=== PATIENT | female | born 1930 | race Caucasian/White ===

== ENCOUNTER 2016-10-10 11:05 | Emergency (ER) | payer MEDICARE, BC ==
[2016-10-10 12:43] VITALS: BP 160/76
[2016-10-10] MEDS ORDERED: Lidocaine 2% PF * 5 ML VIAL ONE (12:46)
--- NOTE | 2016-10-10 12:51 | UC ---
Laceration HPI - HPI Summary HPI Summary: WAS GOING INTO HER CLOSET ABOUT 2 HRS AGO WHEN THE FOLDING DOOR FELL OFF THE TRACK AND STRUCK HER HEAD. NO LOC. PT PRESENTS WITH A SCALP LACERATION. - History Of Current Complaint Chief Complaint: UCLaceration Stated Complaint: HEAD LACERATION Time Seen by Provider: 10/10/16 12:39 Hx Obtained From: Patient Laceration Location: Head Mechanism Of Injury: Blunt Trauma Onset/Duration: Sudden Onset, Lasting Hours Severity: Moderate Pain Intensity: 2 Pain Scale Used: 0-10 Numeric Aggravating Factors: Nothing - Allergies/Home Medications Allergies/Adverse Reactions: Allergies Allergy/AdvReac Type Severity Reaction Status Date / Time No Known Allergies Allergy Verified 10/10/16 12:32 PMH/Surg Hx/FS Hx/Imm Hx Endocrine History Of: Reports: Diabetes Cardiovascular History Of: Reports: Hypertension Neurological History Of: Reports: Dementia Psychological History Of: Reports: Anxiety, Depression - Surgical History Surgical History: Yes Surgery Procedure, Year, and Place: GASTRECTOMY - Family History Known Family History: Negative: Hypertension - Social History Alcohol Use: Occasionally Substance Use Type: None Smoking Status (MU): Never Smoked Tobacco - Immunization History Most Recent Influenza Vaccination: Fall 2013 Most Recent Tetanus Shot: Unsure Most Recent Pneumonia Vaccination: Not sure if received Review of Systems Constitutional: Negative Skin: Other - LACERATION SCALP Respiratory: Negative Cardiovascular: Negative Gastrointestinal: Negative Neurological: Negative All Other Systems Reviewed And Are Negative: Yes Physical Exam Triage Information Reviewed: Yes Appearance: Well-Appearing, No Pain Distress, Well-Nourished Vital Signs: Initial Vital Signs Temp 98.0 F 10/10/16 12:35 Pulse 95 10/10/16 12:35 Resp 16 10/10/16 12:35 BP 160/76 10/10/16 12:35 Pulse Ox 95 10/10/16 12:35 Vital Signs Reviewed: Yes Eyes: Positive: Conjunctiva Clear ENT: Positive: Hearing grossly normal, TMs normal Neck: Positive: Supple Respiratory: Positive: No respiratory distress, No accessory muscle use Cardiovascular: Positive: Pulses Normal Abdomen Description: Positive: Soft Musculoskeletal: Positive: No Edema Neurological: Positive: Alert, Other: - CN II-XII GROSSLY INTACT BILATERALLY Psychological: Positive: Age Appropriate Behavior Skin: Positive: Other - 3.5CM LINER LACERATION RIGHT POSTERIOR SCALP. Negative : rashes Laceration Repair - Laceration Repair 1 Description: Linear Laceration Size After Repair: Length (cm) - 3.5CM, Width (mm) - 0MM, Depth (mm) - 4MM Modified For Repair: No Type Injection: Local Anesthesia Used: 2.0% Lido Irrigation With Pressure Irrigation Device: Yes Closure Material: [place] - 5 PALMA Closure Method: Single Layer Laceration Course/Dx - Differential Dx - Laceration/Wound Provider Diagnoses: SCALP LACERATION REPAIR Discharge - Discharge Plan Condition: Stable Disposition: HOME Patient Education Materials: Laceration (ED) Referrals: Peg, [Primary Care Provider] - If Needed Additional Instructions: SEEK FOLLOW-UP IF YOU DEVELOP SPREADING REDNESS OF THE SKIN, PURULENT DRAINAGE, FEVER, INCREASED PAIN OR ANY OTHER CONCERNING SYMPTOMS. RETURN FOR STAPLE REMOVAL IN 8 DAYS GO TO THE ER WITHOUT FAIL IF YOU DEVELOP UNEQUAL PUPILS, VISUAL DISTURBANCE, GAIT INSTABILITY, SPEECH DIFFICULTY, NAUSEA/VOMITING, WORSENING HEADACHE, DIZZINESS, CONFUSION, WEAKNESS OR ANY OTHER CONCERNING SYMPTOMS.
== END 2016-10-10 13:40 | disposition home or self-care (01) ==
LOC: UCEAST 11:05
DX: S01.01XA Laceration without foreign body of scalp, initial encounter (principal); W20.8XXA Other cause of strike by thrown, projected or falling object, initial encounter; Y93.9 Activity, unspecified; Y92.009 Unspecified place in unspecified non-institutional (private) residence as the place of occurrence of the external cause
CPT/HCPCS: 12002; 99201; G0463

== ENCOUNTER 2016-10-15 12:17 | Observation (INO) | payer MEDICARE, BC ==
[2016-10-15] MEDS ORDERED: Thiamine IV* 100 MG, Folic Acid IV* 1 MG, Multiple Vitamin IV ADULT* 10 ML in NS 0.9% 1... IV ONE (16:33)
--- NOTE | 2016-10-15 17:00 | RAD ---
Indication: Weakness. 2 views of the chest including dual energy PA views are reviewed and compared to previous exam dated November 09, 2014. No mediastinal shift is noted. Hyperinflated lung montiel are noted. Old rib injuries of the right ribs are noted. Lung montiel appear clear. IMPRESSION: No active cardiopulmonary disease is noted.
--- NOTE | 2016-10-15 17:39 | RAD ---
Indication: Fall, leg weakness. CT of the pelvis was obtained in the axial plane. Sagittal and coronal reconstructed images were obtained. The pelvic ring is intact. There is no evidence of fracture of the pelvic ring. Degenerative changes of the sacroiliac joint is noted. The femoral head and neck demonstrates no evidence of fracture. Proximal femurs are unremarkable. No pelvic masses are noted. Myomatous changes of the uterus are noted. No retroperitoneal adenopathy is noted. Degenerative changes of the lumbar spine is noted. IMPRESSION: No fracture of the pelvis is noted.
--- NOTE | 2016-10-15 17:43 | RAD ---
Indication: Multiple falls. CT of the brain was performed without IV contrast. Ventricular structures are midline. No midline shift is noted. The extra-axial spaces are unremarkable. Periventricular lucency consistent with chronic ischemic White matter change is noted. Overall no changes noted since previous exam of November 09, 2014. Mastoid air cells and paranasal sinuses as well as the bony calvaria are grossly unremarkable. In the right posterior parietal area there appears to be a small scalp hematoma noted. Clinical correlation is suggested as this was not present on November 09, 2014. IMPRESSION: CHRONIC ISCHEMIC WHITE MATTER CHANGE. NO INTRACRANIAL MASS OR HEMORRHAGE IS NOTED. LIKELY SCALP HEMATOMA OVER THE RIGHT PARIETAL AREA. CLINICAL CORRELATION IS SUGGESTED.
[2016-10-15 17:51] LABS: Hematocrit 39 % (35-47); Hemoglobin 12.3 g/dl (12.0-16.0); Mean Corpuscular HGB Conc 32 g/dl (31-36); Mean Corpuscular Hemoglobin 26 pg (27-31); Mean Corpuscular Volume 81 fL (80-97); Mean Platelet Volume 7 um3 (7.4-10.4); Red Cell Distribution Width 22 % (10.5-15); White Blood Count 10.2 10^3/ul (3.5-10.8)
--- NOTE | 2016-10-15 17:55 | RAD ---
Indication: Back pain, leg weakness. CT of the lumbar spine was obtained in the axial plane. Sagittal and coronal reconstructed images were obtained. There is mild compression of the T12 vertebra age of which is undetermined. Remainder the vertebral bodies appear normal in height. At L5-S1 there is degenerative disc disease with vacuum disc phenomenon. Broad-based protrusion is noted. Moderate degree of facet arthropathy is noted. Broad-based protrusion is noted. At L4-L5 degenerative disc disease with broad-based protrusion flattens the thecal sac. Facet arthropathy is noted. There may be some mild spinal stenosis at L4-L5 due to broad-based protrusion. At L3-L4 degenerative disc disease with broad-based protrusion flattens the thecal sac. Moderate degree of facet arthropathy is noted. No central or foraminal stenosis is noted. At L2-L3 degenerative disc disease is noted. Broad-based protrusion flattens the thecal sac. Moderate degree of facet arthropathy is noted. No central or foraminal stenosis is noted. At L1-L2 degenerative disc disease with ventral osteophyte formation is noted. No central or foraminal stenosis is noted. No evidence of fracture is noted. IMPRESSION: DEGENERATIVE DISC DISEASE FROM T12-L1 THROUGH L5-S1. AT L4-L5 AND L5-S1 BROAD-BASED PROTRUSION IS NOTED. THERE MAY BE MODERATE SPINAL STENOSIS WITH FACET ARTHROPATHY IS NOTED. COMPRESSION FRACTURE OF T12 AGE OF WHICH IS UNDETERMINED.
[2016-10-15 18:05] LABS: Ammonia 33 mol/L (16-53)
[2016-10-15 18:07] LABS: ALT 16 U/L (7-52); AST 28 U/L (13-39); Albumin 3.4 g/dL (3.2-5.2); Alkaline Phosphatase 115 U/L (34-104); Anion Gap 11 mmol/L (2-11); BUN/Creatinine Ratio 15.9 (8-20); Blood Urea Nitrogen 11 mg/dL (6-24); C Reactive Protein 62.62 mg/L (< 5.00); CO2 Carbon Dioxide 20 mmol/L (22-32); Calcium 8.7 mg/dL (8.6-10.3); Chloride 100 mmol/L (101-111); Creatine Kinase 165 U/L (10-223); EGFR African American 103.7 (>60); EGFR Non-African American 80.7 (>60); Globulin 3.3 g/dL (2-4); Glucose 99 mg/dL (70-100); Lipase 14 U/L (11.0-82.0); Magnesium 2.1 mg/dL (1.9-2.7); Sodium 131 mmol/L (133-145); Total Protein 6.7 g/dL (6.4-8.9); Troponin I 0.01 ng/mL (<0.04)
[2016-10-15 18:08] LABS: B Type Natriuretic Peptide 307 pg/mL
[2016-10-15 18:12] LABS: Acetaminophen < 15 mcg/mL; Alcohol < 10 mg/dL (<10)
[2016-10-15 18:22] LABS: TSH (Thyroid Stimulating Horm) 0.85 mcIU/mL (0.34-5.60)
--- NOTE | 2016-10-15 20:45 | ED ---
Cyndee Mast Anna, scribed for Talha Austin MD on 10/15/16 at 1623 . Adult Trauma - HPI Summary HPI Summary: Patient is an 86 y/o female coming to [facility] following a series of falls that began 2 days ago. The patient fell 3-4 times in last 2 days. She reports she didnt hurt herself during the falls. She has fallen while slipping out of bed and fell in the living room. She reports that she is ambulatory once she is able to get up. Her legs feel fine. She says the carpet is very slick where she lives. She has tried to be careful. She denies GUERRA, or weakness. Her knees are arthritic and sometimes dont cooperate. She takes Tylenol codeine for her knees. - History of Current Complaint Chief Complaint: EDGeneral Stated Complaint: FALL Time Seen by Provider: 10/15/16 16:08 Hx Obtained From: Patient Mechanism of Injury: Fall Ambulatory at the Scene: Yes Loss of Consciousness: no loss of consciousness Pain Intensity: 0 - Allergy/Home Medications Allergies/Adverse Reactions: Allergies Allergy/AdvReac Type Severity Reaction Status Date / Time No Known Allergies Allergy Verified 10/15/16 12:41 PMH/Surg Hx/FS Hx/Imm Hx Endocrine/Hematology History: Reports: Hx Diabetes Cardiovascular History: Reports: Hx Hypertension GI History: Reports: Other GI Disorders - Partial gastrectomy History: Reports: Other Problems/Disorders - urinary urgency Musculoskeletal History: Reports: Hx Arthritis - AHMET knees, Hx Rheumatoid Arthritis - OA Denies: Other Musculoskeletal History Sensory History: Reports: Hx Contacts or Glasses Opthamlomology History: Reports: Hx Contacts or Glasses Neurological History: Reports: Hx Dementia Psychiatric History: Reports: Hx Anxiety, Hx Depression - Cancer History Cancer Type, Location and Year: 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 - Surgical History Surgery Procedure, Year, and Place: GASTRECTOMY Infectious Disease History: No Infectious Disease History: Denies: Traveled Outside the [place] in Last 30 Days - Family History Known Family History: Negative: Hypertension - Social History Lives: Assisted Living Alcohol Use: Occasionally Substance Use Type: Reports: None Smoking Status (MU): Never Smoked Tobacco Review of Systems Constitutional: Negative Eyes: Negative ENT: Negative Cardiovascular: Negative Respiratory: Negative Gastrointestinal: Negative Genitourinary: Negative Musculoskeletal: Negative Skin: Negative Neurological: Negative Psychological: Normal All Other Systems Reviewed And Are Negative: Yes Physical Exam Triage Information Reviewed: Yes Vital Signs On Initial Exam: Initial Vitals Temp Pulse Resp BP Pulse Ox 98.3 F 75 18 136/64 100 10/15/16 12:42 10/15/16 12:42 10/15/16 12:42 10/15/16 12:42 10/15/16 12:42 Vital Signs Reviewed: Yes Appearance: Positive: Well-Appearing, No Pain Distress Skin: Positive: Warm, Skin Color Reflects Adequate Perfusion, Dry Head/Face: Positive: Normal Head/Face Inspection Eyes: Positive: EOMI, SKYLER ENT: Positive: Normal ENT inspection Neck: Positive: Supple, Nontender Respiratory/Lung Sounds: Positive: Clear to Auscultation, Breath Sounds Present Cardiovascular: Positive: RRR Abdomen Description: Positive: Nontender, Soft Bowel Sounds: Positive: Present Musculoskeletal: Positive: Normal, Strength/ROM Intact Neurological: Positive: Normal, Sensory/Motor Intact, Alert, Oriented to Person Place, Time Psychiatric: Positive: Affect/Mood Appropriate Diagnostics - Vital Signs Vital Signs Temp Pulse Resp BP Pulse Ox 10/15/16 12:42 98.3 F 75 18 136/64 100 - Laboratory Lab Results: Lab Results 10/15/16 10/15/16 10/15/16 Range/Units 17:30 17:30 17:30 WBC 10.2 (3.5-10.8) 10^3/ul RBC 4.80 (4.0-5.4) 10^6/ul Hgb 12.3 (12.0-16.0) g/dl Hct 39 (35-47) % MCV 81 (80-97) fL MCH 26 L (27-31) pg MCHC 32 (31-36) g/dl RDW 22 H (10.5-15) % Plt Count 309 (150-450) 10^3/ul MPV 7 L (7.4-10.4) um3 Neut % (Auto) 79.2 (38-83) % Lymph % (Auto) 12.8 L (25-47) % Darke % (Auto) 7.1 (1-9) % Eos % (Auto) 0.2 (0-6) % Baso % (Auto) 0.7 (0-2) % Absolute Neuts (auto) 8.1 H (1.5-7.7) 10^3/ul Absolute Lymphs (auto) 1.3 (1.0-4.8) 10^3/ul Absolute Monos (auto) 0.7 (0-0.8) 10^3/ul Absolute Eos (auto) 0 (0-0.6) 10^3/ul Absolute Basos (auto) 0.1 (0-0.2) 10^3/ul Absolute Nucleated RBC 0 10^3/ul Nucleated RBC % 0 INR (Anticoag Therapy) 0.96 (0.89-1.11) APTT 29.7 (26.0-36.3) seconds Sodium 131 L (133-145) mmol/L Potassium 4.0 (3.5-5.0) mmol/L Chloride 100 L (101-111) mmol/L Carbon Dioxide 20 L (22-32) mmol/L Anion Gap 11 (2-11) mmol/L BUN 11 (6-24) mg/dL Creatinine 0.69 (0.51-0.95) mg/dL Est GFR ( Amer) 103.7 (>60) Est GFR (Non-Af Amer) 80.7 (>60) BUN/Creatinine Ratio 15.9 (8-20) Glucose 99 (70-100) mg/dL Lactic Acid (0.5-2.0) mmol/L Calcium 8.7 (8.6-10.3) mg/dL Magnesium 2.1 (1.9-2.7) mg/dL Total Bilirubin 0.60 (0.2-1.0) mg/dL AST 28 (13-39) U/L ALT 16 (7-52) U/L Alkaline Phosphatase 115 H (34-104) U/L Ammonia (16-53) mol/L Total Creatine Kinase 165 (10-223) U/L CK-MB (CK-2) 11.6 H (0.6-6.3) ng/mL Troponin I 0.01 (<0.04) ng/mL C-Reactive Protein 62.62 H (< 5.00) mg/L B-Natriuretic Peptide ( - 100) pg/mL Total Protein 6.7 (6.4-8.9) g/dL Albumin 3.4 (3.2-5.2) g/dL Globulin 3.3 (2-4) g/dL Albumin/Globulin Ratio 1.0 (1-3) Lipase 14 (11.0-82.0) U/L TSH 0.85 (0.34-5.60) mcIU/mL Acetaminophen < 15 mcg/mL Serum Alcohol < 10 (<10) mg/dL 10/15/16 10/15/16 Range/Units 17:30 17:30 WBC (3.5-10.8) 10^3/ul RBC (4.0-5.4) 10^6/ul Hgb (12.0-16.0) g/dl Hct (35-47) % MCV (80-97) fL MCH (27-31) pg MCHC (31-36) g/dl RDW (10.5-15) % Plt Count (150-450) 10^3/ul MPV (7.4-10.4) um3 Neut % (Auto) (38-83) % Lymph % (Auto) (25-47) % Darke % (Auto) (1-9) % Eos % (Auto) (0-6) % Baso % (Auto) (0-2) % Absolute Neuts (auto) (1.5-7.7) 10^3/ul Absolute Lymphs (auto) (1.0-4.8) 10^3/ul Absolute Monos (auto) (0-0.8) 10^3/ul Absolute Eos (auto) (0-0.6) 10^3/ul Absolute Basos (auto) (0-0.2) 10^3/ul Absolute Nucleated RBC 10^3/ul Nucleated RBC % INR (Anticoag Therapy) (0.89-1.11) APTT (26.0-36.3) seconds Sodium (133-145) mmol/L Potassium (3.5-5.0) mmol/L Chloride (101-111) mmol/L Carbon Dioxide (22-32) mmol/L Anion Gap (2-11) mmol/L BUN (6-24) mg/dL Creatinine (0.51-0.95) mg/dL Est GFR ( Amer) (>60) Est GFR (Non-Af Amer) (>60) BUN/Creatinine Ratio (8-20) Glucose (70-100) mg/dL Lactic Acid 1.3 (0.5-2.0) mmol/L Calcium (8.6-10.3) mg/dL Magnesium (1.9-2.7) mg/dL Total Bilirubin (0.2-1.0) mg/dL AST (13-39) U/L ALT (7-52) U/L Alkaline Phosphatase (34-104) U/L Ammonia 33 (16-53) mol/L Total Creatine Kinase (10-223) U/L CK-MB (CK-2) (0.6-6.3) ng/mL Troponin I (<0.04) ng/mL C-Reactive Protein (< 5.00) mg/L B-Natriuretic Peptide 307 H ( - 100) pg/mL Total Protein (6.4-8.9) g/dL Albumin (3.2-5.2) g/dL Globulin (2-4) g/dL Albumin/Globulin Ratio (1-3) Lipase (11.0-82.0) U/L TSH (0.34-5.60) mcIU/mL Acetaminophen mcg/mL Serum Alcohol (<10) mg/dL Result Diagrams: 10/15/16 17:30 10/15/16 17:30 Lab Statement: Any lab studies that have been ordered have been reviewed, and results considered in the medical decision making process. - Radiology CXR Xray Interpretation: No Acute Changes Radiology Interpretation Completed By: Radiologist - CT L-Spine CT CT Interpretation: Positive (See Comments) CT Interpretation Completed By: Radiologist - IMPRESSION: DEGENERATIVE DISC DISEASE FROM T12-L1 THROUGH L5-S1. AT L4-L5 AND L5-S1 BROAD-BASED PROTRUSION IS NOTED. THERE MAY BE MODERATE SPINAL STENOSIS WITH FACET ARTHROPATHY IS NOTED. Pelvic CT CT Interpretation: No Acute Changes CT Interpretation Completed By: Radiologist Brain CT CT Interpretation: Positive (See Comments) CT Interpretation Completed By: Radiologist - IMPRESSION: CHRONIC ISCHEMIC WHITE MATTER CHANGE. NO INTRACRANIAL MASS OR HEMORRHAGE IS NOTED. LIKELY SCALP HEMATOMA OVER THE RIGHT PARIETAL AREA. CLINICAL CORRELATION IS SUGGESTED. Re-Evaluation - Re-Evaluation First Eval Re-Evaluation Time: 20:26 Change: Improved - Discussed results and plan of care with patient. Patient agrees with plan. Patient reports that she is feeling fine and would like to go home. Adult Trauma Course/Dx - Course Assessment/Plan: WELL IN ED. DISCUSSED RESULTS WITH PATIENT. DISCHARGE HOME STABLE. - Diagnoses Provider Diagnoses: Compression fracture of body of thoracic vertebra, Weakness Discharge - Discharge Plan Condition: Stable Disposition: HOME Patient Education Materials: Vertebral Compression Fracture (ED), Weakness (ED) Referrals: Peg, [Primary Care Provider] - Additional Instructions: FOLLOW UP WITH YOUR DOCTOR. YOU HAVE SOME SPINAL STENOSIS SEEN ON YOUR CT. DISCUSS THIS WITH YOUR DOCTOR. YOU MAY NEED AN MRI OF YOUR LUMBAR SPINE. RETURN TO THE EMERGENCY DEPARTMENT FOR ANY WORSENING OF YOUR CONDITION OR QUESTIONS OR CONCERNS. The documentation as recorded by the Cyndee elliott Anna accurately reflects the service I personally performed and the decisions made by me, Talha Austin MD.
[2016-10-15] MEDS ORDERED: ALPRAZolam TAB* 0.5 MG PO SCH (21:00)
[2016-10-15] MEDS ORDERED: Senna TAB PO SCH (21:00)
--- NOTE | 2016-10-15 21:26 | HP ---
H&P (Free Text) History and Physical: PCP: [facility], Shmuel Rodriguez MD Date/Time of Evaluation: 10/15/2016 2130 CC: frequent falls HPI: Mrs Carpenter is an 86YO female resident of [place] presenting with increased falls recently sent in for evaluation with negative work up. Mrs Carpenter has mild to moderate dementia at baseline, is accurate for current status questions, but has a limited understanding of her current issues. When asked if she was having any problems recently she denied. She was unable to answer why she had come to the ED, but when asked if she has fallen recently was able to state that "that's why I'm here". She he is unable to describe her falls beyond stating that "The carpet at [place] is slick." She denies chest pain, SOB, N/V, F/C/D, focal W/N/T, change in bowel/bladder, or other issues. PMedHx DM2 HTN PUD w/ hemorrhage s/p partial gastrectomy dementia depression anxiety OA constipation insomnia Allergies No Known Allergies Allergy (Verified 10/15/16 12:41) Ambulatory Orders Acetaminophen Codeine #4 (NF) [Tylenol w/ Codeine #4 (300 mg/60 mg) (NF)] 1 tab PO Q4HR PRN MDD 3000mg 11/10/14 Donepezil TAB* [Aricept TAB*] 5 mg PO BEDTIME 11/10/14 Memantine TAB* [Namenda TAB*] 10 mg PO BID 11/10/14 Mirtazapine TAB* [Remeron TAB*] 45 mg PO BEDTIME 11/10/14 ALPRAZolam TAB* [Xanax TAB*] 0.5 mg PO 1200 10/15/16 ALPRAZolam TAB* [Xanax TAB*] 0.5 mg PO 1600 10/15/16 ALPRAZolam TAB* [Xanax TAB*] 0.5 mg PO BEDTIME 10/15/16 ALPRAZolam TAB* [Xanax TAB*] 1 mg PO QAM 10/15/16 Acetaminophen TAB* [Tylenol TAB*] 500 mg PO Q4H PRN MDD 3g 10/15/16 Citalopram TAB* [CeleXA TAB*] 10 mg PO DAILY 10/15/16 Metoprolol Succinate XL TAB* [Toprol XL TAB*] 50 mg PO DAILY 10/15/16 Ramelteon (NF) [Rozerem (NF)] 8 mg PO BEDTIME PRN 10/15/16 Senna TAB* [Senokot TAB*] 2 tab PO BEDTIME 10/15/16 amLODIPine TAB* [Norvasc TAB*] 5 mg PO DAILY 10/15/16 PSurgHx partial gastrectomy for PUD w/ hemorrhage SocHx: no tobacco or recreational drugs, drinks 2beers daily; , lives alone at [place]; DNR code status FamHx: reviewed, non-contributory ROS: as above, otherwise reviewed and all were negative Constitutional: NAD, normally developed, obese elderly white female vitals: Vital Signs Temp 36.8 C 10/15/16 12:42 Pulse 75 10/15/16 12:42 Resp 18 10/15/16 12:42 BP 136/64 10/15/16 12:42 Pulse Ox 100 10/15/16 12:42 Intake & Output 10/14/16 10/15/16 10/15/16 23:59 11:59 23:59 Intake Total 1999 Balance 1999 Weight 190 lb Intake: IV Fluids 1999 HEENM: atraumatic; sclera/conjunctiva: non-icteric/clear; hearing: clinically mild to moderately decreased; oropharynx: clear, mucosa moist Neck: soft tissue: non-tender; thyroid: normal Pulmonary: clear to auscultation bilaterally, good aeration, no accessory muscle use CV: RR/RR, normal S1S2, no carotid bruit, no jugular venous distention, 2+ B DP/ PT, no edema Abdominal: soft, non-distended, non-tender, no rebound/guarding/rigidity, normoactive bowel sounds, no hepatosplenomegaly or masses, no costovertebral angle tenderness Musculoskeletal: general: grossly intact; gait: stable, seen to ambulate to restroom without difficulty Integumental: R flank ecchymosis with minimal tenderness, no hematoma Psychiatric orientation: AA&O to person, loosely to place/situation affect: calm mood: pleasant eye contact: good content: somewhat reliable memory: impaired responses: timely insight: poor to fair Testing: Lab Results 10/15/16 10/15/16 10/15/16 Range/Units 17:30 17:30 17:30 WBC 10.2 (3.5-10.8) 10^3/ul RBC 4.80 (4.0-5.4) 10^6/ul Hgb 12.3 (12.0-16.0) g/dl Hct 39 (35-47) % MCV 81 (80-97) fL MCH 26 L (27-31) pg MCHC 32 (31-36) g/dl RDW 22 H (10.5-15) % Plt Count 309 (150-450) 10^3/ul MPV 7 L (7.4-10.4) um3 Neut % (Auto) 79.2 (38-83) % Lymph % (Auto) 12.8 L (25-47) % [place] % (Auto) 7.1 (1-9) % Eos % (Auto) 0.2 (0-6) % Baso % (Auto) 0.7 (0-2) % Absolute Neuts (auto) 8.1 H (1.5-7.7) 10^3/ul Absolute Lymphs (auto) 1.3 (1.0-4.8) 10^3/ul Absolute Monos (auto) 0.7 (0-0.8) 10^3/ul Absolute Eos (auto) 0 (0-0.6) 10^3/ul Absolute Basos (auto) 0.1 (0-0.2) 10^3/ul Absolute Nucleated RBC 0 10^3/ul Nucleated RBC % 0 INR (Anticoag Therapy) 0.96 (0.89-1.11) APTT 29.7 (26.0-36.3) seconds Sodium 131 L (133-145) mmol/L Potassium 4.0 (3.5-5.0) mmol/L Chloride 100 L (101-111) mmol/L Carbon Dioxide 20 L (22-32) mmol/L Anion Gap 11 (2-11) mmol/L BUN 11 (6-24) mg/dL Creatinine 0.69 (0.51-0.95) mg/dL Est GFR ( Amer) 103.7 (>60) Est GFR (Non-Af Amer) 80.7 (>60) BUN/Creatinine Ratio 15.9 (8-20) Glucose 99 (70-100) mg/dL Lactic Acid (0.5-2.0) mmol/L Calcium 8.7 (8.6-10.3) mg/dL Magnesium 2.1 (1.9-2.7) mg/dL Total Bilirubin 0.60 (0.2-1.0) mg/dL AST 28 (13-39) U/L ALT 16 (7-52) U/L Alkaline Phosphatase 115 H (34-104) U/L Ammonia (16-53) mol/L Total Creatine Kinase 165 (10-223) U/L CK-MB (CK-2) 11.6 H (0.6-6.3) ng/mL Troponin I 0.01 (<0.04) ng/mL C-Reactive Protein 62.62 H (< 5.00) mg/L B-Natriuretic Peptide ( - 100) pg/mL Total Protein 6.7 (6.4-8.9) g/dL Albumin 3.4 (3.2-5.2) g/dL Globulin 3.3 (2-4) g/dL Albumin/Globulin Ratio 1.0 (1-3) Lipase 14 (11.0-82.0) U/L TSH 0.85 (0.34-5.60) mcIU/mL Acetaminophen < 15 mcg/mL Serum Alcohol < 10 (<10) mg/dL 10/15/16 10/15/16 Range/Units 17:30 17:30 WBC (3.5-10.8) 10^3/ul RBC (4.0-5.4) 10^6/ul Hgb (12.0-16.0) g/dl Hct (35-47) % MCV (80-97) fL MCH (27-31) pg MCHC (31-36) g/dl RDW (10.5-15) % Plt Count (150-450) 10^3/ul MPV (7.4-10.4) um3 Neut % (Auto) (38-83) % Lymph % (Auto) (25-47) % Brewster % (Auto) (1-9) % Eos % (Auto) (0-6) % Baso % (Auto) (0-2) % Absolute Neuts (auto) (1.5-7.7) 10^3/ul Absolute Lymphs (auto) (1.0-4.8) 10^3/ul Absolute Monos (auto) (0-0.8) 10^3/ul Absolute Eos (auto) (0-0.6) 10^3/ul Absolute Basos (auto) (0-0.2) 10^3/ul Absolute Nucleated RBC 10^3/ul Nucleated RBC % INR (Anticoag Therapy) (0.89-1.11) APTT (26.0-36.3) seconds Sodium (133-145) mmol/L Potassium (3.5-5.0) mmol/L Chloride (101-111) mmol/L Carbon Dioxide (22-32) mmol/L Anion Gap (2-11) mmol/L BUN (6-24) mg/dL Creatinine (0.51-0.95) mg/dL Est GFR ( Amer) (>60) Est GFR (Non-Af Amer) (>60) BUN/Creatinine Ratio (8-20) Glucose (70-100) mg/dL Lactic Acid 1.3 (0.5-2.0) mmol/L Calcium (8.6-10.3) mg/dL Magnesium (1.9-2.7) mg/dL Total Bilirubin (0.2-1.0) mg/dL AST (13-39) U/L ALT (7-52) U/L Alkaline Phosphatase (34-104) U/L Ammonia 33 (16-53) mol/L Total Creatine Kinase (10-223) U/L CK-MB (CK-2) (0.6-6.3) ng/mL Troponin I (<0.04) ng/mL C-Reactive Protein (< 5.00) mg/L B-Natriuretic Peptide 307 H ( - 100) pg/mL Total Protein (6.4-8.9) g/dL Albumin (3.2-5.2) g/dL Globulin (2-4) g/dL Albumin/Globulin Ratio (1-3) Lipase (11.0-82.0) U/L TSH (0.34-5.60) mcIU/mL Acetaminophen mcg/mL Serum Alcohol (<10) mg/dL CXR, personally reviewed: IMPRESSION: No active cardiopulmonary disease is noted. CT brain WO, personally reviewed: IMPRESSION: CHRONIC ISCHEMIC WHITE MATTER CHANGE. NO INTRACRANIAL MASS OR HEMORRHAGE IS NOTED. LIKELY SCALP HEMATOMA OVER THE RIGHT PARIETAL AREA. CLINICAL CORRELATION IS SUGGESTED. CT L-spine WO, personally reviewed: IMPRESSION: DEGENERATIVE DISC DISEASE FROM T12-L1 THROUGH L5-S1. AT L4-L5 AND L5-S1 BROAD-BASED PROTRUSION IS NOTED. THERE MAY BE MODERATE SPINAL STENOSIS WITH FACET ARTHROPATHY IS NOTED. COMPRESSION FRACTURE OF T12 AGE OF WHICH IS UNDETERMINED. CT pelvis WO, personally reviewed: IMPRESSION: No fracture of the pelvis is noted. Impression: 86F presenting with increased fall recently likely 2nd to combining alcohol & alprazolam, work up negative but [facility] declined to accept patient back until the AM invoking the [facility] relationship DIAGNOSIS & PLAN Primary falls : fall precautions : uncertain etiology, possibly ETOH potentiating alprazolam effect : continue current alprazolam w/o ETOH & arrange PT evaluation in AM : hold acetaminophen w/ codeine : supportive care Secondary DM2 : consistent carb diet : correctional protocol : check A1c HTN : continue metoprolol & amlodipine PUD : HX hemorrhage s/p partial gastrectomy : PPI dementia : continue donepezil & memantine depression : continue mirtazapine & citalopram anxiety : continue alprazolam insomnia : continue ramelteon Admission Rational: observation under [facility] relationship DVTp: SCDs, no anticoagulation given fall & scalp hematoma Code Status: DNR HCP: uncertain
[2016-10-15] MEDS ORDERED: Ramelteon (NF) 8 MG TAB PO PRN (22:27)
[2016-10-15] MEDS ORDERED: Ondansetron INJ* 2 MG/ML VIAL IV PRN (22:31)
[2016-10-15] MEDS ORDERED: traMADol TAB* 50 MG PO PRN (22:31)
[2016-10-15] MEDS ORDERED: Mirtazapine TAB* 15 MG PO SCH (23:00)
[2016-10-15] MEDS ORDERED: Donepezil TAB* 5 MG PO SCH (23:00)
[2016-10-15] MEDS: Metoprolol Succinate XL TAB* 50 MG PO SCH (23:22)
[2016-10-16] MEDS: Acetaminophen TAB* 325 MG PO PRN ×2 (03:01→10:22)
[2016-10-16] MEDS: Nystatin TOP POWDER* 15 GM BTL TOPICAL SCH ×2 (03:02→10:21)
[2016-10-16] MEDS ORDERED: CMCS Pantoprazole TAB (NF) 40 MG TAB PO SCH (06:00)
[2016-10-16] MEDS ORDERED: Mirtazapine TAB* 15 MG PO SCH (07:25)
[2016-10-16] MEDS ORDERED: Insulin LISPRO* 1 UNITS UNIT SUBCUT SCH (07:30)
--- NOTE | 2016-10-16 07:43 | DCNOTE ---
Subjective Date of Service: 10/16/16 Interval History: Pt states she was sent here due to her falls. She recalls bumping her head in a fall. No dizziness, LOC. No pain. No new c/o. Objective Active Medications: Acetaminophen (Tylenol Tab*) 650 mg PO Q6H PRN PRN Reason: PAIN Last Admin: 10/16/16 03:01 Dose: 650 mg Alprazolam (Xanax Tab*) 0.5 mg PO 1200 ANTONIETA Alprazolam (Xanax Tab*) 0.5 mg PO 1600 ANTONIETA Alprazolam (Xanax Tab*) 0.5 mg PO BEDTIME [facility] Last Admin: 10/15/16 23:26 Dose: 0.5 mg Alprazolam (Xanax Tab*) 1 mg PO QAM [facility] Amlodipine Besylate (Norvasc Tab*) 5 mg PO DAILY [facility] Citalopram Hydrobromide (Celexa Tab*) 10 mg PO DAILY [facility] Donepezil HCl (Aricept Tab*) 5 mg PO BEDTIME [facility] Last Admin: 10/15/16 23:26 Dose: 5 mg Insulin Human Lispro (Humalog*) 0 units SUBCUT ACHS [facility] PRN Reason: Protocol Memantine (Namenda Tab*) 10 mg PO BID [facility] Metoprolol Succinate (Toprol Xl Tab*) 50 mg PO DAILY [facility] Last Admin: 10/15/16 23:22 Dose: Not Given Mirtazapine (Remeron Tab*) 30 mg PO BEDTIME [facility] Nystatin (Nystatin Top Powder*) 1 applic TOPICAL TID [facility] Last Admin: 10/16/16 03:02 Dose: 1 applic Ondansetron HCl (Zofran Inj*) 4 mg IV Q6H PRN PRN Reason: NAUSEA Pantoprazole Sodium (Protonix Tab (Nf)) 40 mg PO DAILY@0600 [facility] Last Admin: 10/16/16 06:24 Dose: 40 mg Ramelteon (Rozerem (Nf)) 8 mg PO BEDTIME PRN; Protocol PRN Reason: SLEEP Senna (Senokot Tab*) 2 tab PO BEDTIME [facility] Last Admin: 10/15/16 23:26 Dose: 2 tab Tramadol HCl (Ultram*) 50 mg PO Q6H PRN PRN Reason: PAIN Vital Signs 01/08/2110/15/16 10/15/16 22:40 23:20 23:26 Temperature 97.5 F Pulse Rate 108 80 Respiratory 16 16 Rate Blood Pressure 125/102 130/97 (mmHg) O2 Sat by Pulse 96 Oximetry 10/15/16 10/16/16 10/16/16 23:40 01:26 04:16 Temperature 97.8 F Pulse Rate 80 62 Respiratory 16 16 Rate Blood Pressure 138/70 (mmHg) O2 Sat by Pulse 95 Oximetry 10/16/16 04:22 Temperature Pulse Rate Respiratory 16 Rate Blood Pressure (mmHg) O2 Sat by Pulse Oximetry Oxygen Devices in Use Now: None Appearance: Alert, supine in bed. In good spirits. Looks comfortable. Eyes: No Scleral Icterus Ears/Nose/Mouth/Throat: Clear Oropharnyx, Mucous Membranes Moist Neck: NL Appearance and Movements; NL JVP, No Thyroid Enlargement, Masses Respiratory: Symmetrical Chest Expansion and Respiratory Effort, Clear to Auscultation, Clear to Percussion Cardiovascular: NL Sounds; No Murmurs; No JVD, No Edema, - - frequent premature beats Extremities: No Edema, No Clubbing, Cyanosis, - Skin: No Rash or Ulcers, - - small nontender hematoma R parietal/occipital scalp Neurological: Alert and Oriented x 3, NL Sensation - She knows she is on the 4th floor of [facility] [place], gave present month as Sep. No tremor. Result Diagrams: 10/15/16 17:30 10/15/16 17:30 Additional Lab and Data: Lab Results 10/15/16 10/15/16 10/15/16 Range/Units 17:30 17:30 17:30 WBC 10.2 (3.5-10.8) 10^3/ul RBC 4.80 (4.0-5.4) 10^6/ul Hgb 12.3 (12.0-16.0) g/dl Hct 39 (35-47) % MCV 81 (80-97) fL MCH 26 L (27-31) pg MCHC 32 (31-36) g/dl RDW 22 H (10.5-15) % Plt Count 309 (150-450) 10^3/ul MPV 7 L (7.4-10.4) um3 Neut % (Auto) 79.2 (38-83) % Lymph % (Auto) 12.8 L (25-47) % Charlton % (Auto) 7.1 (1-9) % Eos % (Auto) 0.2 (0-6) % Baso % (Auto) 0.7 (0-2) % Absolute Neuts (auto) 8.1 H (1.5-7.7) 10^3/ul Absolute Lymphs (auto) 1.3 (1.0-4.8) 10^3/ul Absolute Monos (auto) 0.7 (0-0.8) 10^3/ul Absolute Eos (auto) 0 (0-0.6) 10^3/ul Absolute Basos (auto) 0.1 (0-0.2) 10^3/ul Absolute Nucleated RBC 0 10^3/ul Nucleated RBC % 0 INR (Anticoag Therapy) 0.96 (0.89-1.11) APTT 29.7 (26.0-36.3) seconds Sodium 131 L (133-145) mmol/L Potassium 4.0 (3.5-5.0) mmol/L Chloride 100 L (101-111) mmol/L Carbon Dioxide 20 L (22-32) mmol/L Anion Gap 11 (2-11) mmol/L BUN 11 (6-24) mg/dL Creatinine 0.69 (0.51-0.95) mg/dL Est GFR ( Amer) 103.7 (>60) Est GFR (Non-Af Amer) 80.7 (>60) BUN/Creatinine Ratio 15.9 (8-20) Glucose 99 (70-100) mg/dL Lactic Acid (0.5-2.0) mmol/L Calcium 8.7 (8.6-10.3) mg/dL Magnesium 2.1 (1.9-2.7) mg/dL Total Bilirubin 0.60 (0.2-1.0) mg/dL AST 28 (13-39) U/L ALT 16 (7-52) U/L Alkaline Phosphatase 115 H (34-104) U/L Ammonia (16-53) mol/L Total Creatine Kinase 165 (10-223) U/L CK-MB (CK-2) 11.6 H (0.6-6.3) ng/mL Troponin I 0.01 (<0.04) ng/mL C-Reactive Protein 62.62 H (< 5.00) mg/L B-Natriuretic Peptide ( - 100) pg/mL Total Protein 6.7 (6.4-8.9) g/dL Albumin 3.4 (3.2-5.2) g/dL Globulin 3.3 (2-4) g/dL Albumin/Globulin Ratio 1.0 (1-3) Lipase 14 (11.0-82.0) U/L TSH 0.85 (0.34-5.60) mcIU/mL Acetaminophen < 15 mcg/mL Serum Alcohol < 10 (<10) mg/dL 10/15/16 10/15/16 Range/Units 17:30 17:30 WBC (3.5-10.8) 10^3/ul RBC (4.0-5.4) 10^6/ul Hgb (12.0-16.0) g/dl Hct (35-47) % MCV (80-97) fL MCH (27-31) pg MCHC (31-36) g/dl RDW (10.5-15) % Plt Count (150-450) 10^3/ul MPV (7.4-10.4) um3 Neut % (Auto) (38-83) % Lymph % (Auto) (25-47) % Charlton % (Auto) (1-9) % Eos % (Auto) (0-6) % Baso % (Auto) (0-2) % Absolute Neuts (auto) (1.5-7.7) 10^3/ul Absolute Lymphs (auto) (1.0-4.8) 10^3/ul Absolute Monos (auto) (0-0.8) 10^3/ul Absolute Eos (auto) (0-0.6) 10^3/ul Absolute Basos (auto) (0-0.2) 10^3/ul Absolute Nucleated RBC 10^3/ul Nucleated RBC % INR (Anticoag Therapy) (0.89-1.11) APTT (26.0-36.3) seconds Sodium (133-145) mmol/L Potassium (3.5-5.0) mmol/L Chloride (101-111) mmol/L Carbon Dioxide (22-32) mmol/L Anion Gap (2-11) mmol/L BUN (6-24) mg/dL Creatinine (0.51-0.95) mg/dL Est GFR ( Amer) (>60) Est GFR (Non-Af Amer) (>60) BUN/Creatinine Ratio (8-20) Glucose (70-100) mg/dL Lactic Acid 1.3 (0.5-2.0) mmol/L Calcium (8.6-10.3) mg/dL Magnesium (1.9-2.7) mg/dL Total Bilirubin (0.2-1.0) mg/dL AST (13-39) U/L ALT (7-52) U/L Alkaline Phosphatase (34-104) U/L Ammonia 33 (16-53) mol/L Total Creatine Kinase (10-223) U/L CK-MB (CK-2) (0.6-6.3) ng/mL Troponin I (<0.04) ng/mL C-Reactive Protein (< 5.00) mg/L B-Natriuretic Peptide 307 H ( - 100) pg/mL Total Protein (6.4-8.9) g/dL Albumin (3.2-5.2) g/dL Globulin (2-4) g/dL Albumin/Globulin Ratio (1-3) Lipase (11.0-82.0) U/L TSH (0.34-5.60) mcIU/mL Acetaminophen mcg/mL Serum Alcohol (<10) mg/dL Microbiology and Other Data: Microbiology 10/15/16 23:00 Nasal Screen MRSA (PCR)(ANUSHKA) - Final Nasal Mrsa Negative Assess/Plan/Problems-Billing Assessment: - Patient Problems (1) Gait disorder Current Visit: Yes Status: Acute Code(s): R26.9 - UNSPECIFIED ABNORMALITIES OF GAIT AND MOBILITY SNOMED Code(s): 00813760 Comment: Patient noted by aide to do very well walking to [place]. Suggest GDR mirtazapine, alprazolam, citalpram, ramelteon. Orthostatic VS ordered. (2) Diabetes Current Visit: No Status: Chronic Code(s): E11.9 - TYPE 2 DIABETES MELLITUS WITHOUT COMPLICATIONS SNOMED Code(s): 28476769 Comment: Glu 99 yesterday, FS 93 this AM. A1C 5.8%. I believe this is not a current diagnosis. (3) PVC's (premature ventricular contractions) Current Visit: Yes Status: Acute Code(s): I49.3 - VENTRICULAR PREMATURE DEPOLARIZATION SNOMED Code(s): 12674695 Comment: No hx dizziness/LOC, doubt arrhythmia accounts for her falls. With her age and comorbities would not pursue further w/up. (4) Anxiety disorder Current Visit: No Status: Chronic Code(s): F41.9 - ANXIETY DISORDER, UNSPECIFIED SNOMED Code(s): 929277359 Comment: Consider GDR multiple meds as above. (5) Dementia Current Visit: No Status: Chronic Code(s): F03.90 - UNSPECIFIED DEMENTIA WITHOUT BEHAVIORAL DISTURBANCE SNOMED Code(s): 77381304 Comment: Continue her donepezil and memantine. Status and Disposition: Discharge now. [facility] staff.
[2016-10-16] MEDS ORDERED: Memantine TAB* 10 MG PO SCH (09:00)
[2016-10-16] MEDS ORDERED: amLODIPine TAB* 5 MG PO SCH (09:00)
[2016-10-16] MEDS ORDERED: Citalopram TAB* 10 MG PO SCH (09:00)
[2016-10-16] MEDS ORDERED: ALPRAZolam TAB* 0.5 MG PO SCH ×3 (09:00→16:00)
--- NOTE | 2016-10-16 10:03 | DS ---
CC: Dr. Rodriguez DISCHARGE SUMMARY: DATE OF ADMISSION: DATE OF DISCHARGE: 10/16/16 HISTORY: This 86-year-old woman was sent by the [facility] because of frequent falls. She mus t have had a recent fall with mild head trauma, causing a scalp hematoma in the right parieto-occipi jalen area. She is really not symptomatic for this and really denied pain and on the fourth floor her e, PA noted that she walked to the bathroom quite well. The patient states she uses a walker all th e time when she walks. She seemed to be a fairly reliable historian. There was some history of alc ohol use. Much of her problem list is, I really cannot say. I do note that her alcohol level here was undetectable. I certainly would have her limited to 1 alcoholic drink a day and I do not see an y reason to deny her that amount. The patient was evaluated with a CT scan of the brain, CT scan of the lumbar spine, and CT scan of t he pelvis. She was noted to have possible moderate spinal stenosis and facet arthropathy in the lum bar spine. This do not seem to be clinically a problem, but I noted for the record for completeness . Orthostatic vital signs are being checked. My recommendation would be the same. Whether or not she is orthostatic, I think her multiple medications she is taking is contributing to her frequent falls also to her hyponatremia. I suggest it starting by reducing her mirtazapine dose from 45 to 30 mg. I will consider continued graduated dose reduction of her mirtazapine and alprazolam. I will also consider stopping her citalopram and/or her ramelteon. I note that sodium here was 131. FINAL DIAGNOSES: 1. Gait disorder. 2. Dementia. 3. Anxiety. 4. Hyponatremia. I note her A1c was 5.8%. There is mention of diabetes in the medical record, but I cannot find any laboratory data to substantiate this. DISCHARGE MEDICATIONS: 1. Mirtazapine 30 mg at bedtime. 2. Donepezil 5 mg. 3. Memantine 10 mg b.i.d. 4. Acetaminophen with Codeine 300/60 every 4 hours p.r.n. 5. Alprazolam 0.5 mg at 4 p.m. and at bedtime and 1 mg in the morning. Alprazolam 0.5 mg at noon. 6. Citalopram 10 mg daily. 7. Ramelteon 8 mg at bedtime p.r.n. 8. Amlodipine 5 mg daily. 9. Metoprolol succinate 50 mg daily. 10. Senna 2 at bedtime. 11. Acetaminophen 500 mg every 4 hours p.r.n. [id number]/[facility] #: [id number]
[2016-10-16] MEDS: Metoprolol Succinate XL TAB* 50 MG PO SCH (10:22)
[2016-10-16 10:36] VITALS: BP 149/75
--- NOTE | 2017-01-01 00:58 | ED ---
Cyndee Mast Anna, scribed for Talha Austin MD on 10/15/16 at 9966 . Re-Evaluation - Re-Evaluation First Eval Re-Evaluation Time: 20:26 Change: Improved - Discussed results and plan of care with patient. Patient agrees with plan. Patient reports that she is feeling fine and would like to go home. Course/Dx - Diagnoses Provider Diagnoses: Compression fracture of body of thoracic vertebra, Weakness - Provider Notifications Discussed Care Of Patient With: Dr. Camarillo (hospitalist) at 21:25. In alignment with the request of the patient's living facility, the patient will be admitted. The documentation as recorded by the Cyndee elliott Anna accurately reflects the service I personally performed and the decisions made by , Talha Austin MD.
== END 2016-10-16 11:05 | disposition home or self-care (01) ==
LOC: ED 12:17 → MED 21:58
PROVIDERS: ADMIT Hospitalist; ATTEND Internal Medicine
DX: R26.9 Unspecified abnormalities of gait and mobility (principal); Z91.81 History of falling; F03.90 Unspecified dementia, unspecified severity, without behavioral disturbance, psychotic disturbance, mood disturbance, and anxiety; F41.9 Anxiety disorder, unspecified; E87.1 Hypo-osmolality and hyponatremia; E11.9 Type 2 diabetes mellitus without complications; I10 Essential (primary) hypertension; K27.9 Peptic ulcer, site unspecified, unspecified as acute or chronic, without hemorrhage or perforation; G47.00 Insomnia, unspecified; Z79.899 Other long term (current) drug therapy; M51.34 Other intervertebral disc degeneration, thoracic region; M51.36 Other intervertebral disc degeneration, lumbar region; S22.089A Unspecified fracture of T11-T12 vertebra, initial encounter for closed fracture; X58.XXXA Exposure to other specified factors, initial encounter; Y92.9 Unspecified place or not applicable; I45.10 Unspecified right bundle-branch block; R94.31 Abnormal electrocardiogram [ECG] [EKG]
CPT/HCPCS: 36415; 70450; 71020; 72131; 72192; 80053; 80320; 80329; 82140; 82550; 82553; 83036; 83605; 83690; 83735; 83880; 84443; 84484; 85025; 85610; 85730; 86140; 87641; 93005; 96365; 96366; 99283; A9270-GY; G0378; G0480; J3411